=== PATIENT | male | born 1995 | race Caucasian/White ===

== ENCOUNTER 2024-11-01 14:19 | Emergency (ER) | payer OTHER ==
[~2024-11-01] VITALS: Ht 188 cm; Wt 113.6 kg
[2024-11-01 15:49] VITALS: BP 130/86; PULSE 71; RESP 18; TEMP 98.1; O2SAT 97
[2024-11-01 16:36] LABS: PLATELET COUNT (AUTO) 357 K/uL (150-450); RED BLOOD CELL COUNT(AUTO) 4.78 MIL/uL (4.50-5.90); RED CELL DISTRIBUTION WIDTH 13.0 % (11.5-14.5); WHITE BLOOD COUNT (AUTO) 8.4 K/uL (4.5-11.0)
[2024-11-01 16:46] LABS: CALCIUM, TOTAL 8.8 mg/dL (8.8-10.5); CREATININE 0.99 mg/dL (0.60-1.30); GLOMERULAR FILTR. RATE CALC > 60 mL/min (>60); GLUCOSE,RANDOM 94 mg/dL (70-110); SODIUM SERUM 141 mmol/L (136-145); UREA NITROGEN, BLOOD 10 mg/dL (7-18)
[2024-11-01] MEDS: IBUPROFEN 400 MG TABLET PO ONE (17:05)
[2024-11-01] MEDS: ACETAMINOPHEN 500 MG TABLET PO ONE (17:06)
== END 2024-11-01 20:32 | disposition left against medical advice (07) ==
LOC: EMS 14:19
DX: N50.811 Right testicular pain (principal); E78.00 Pure hypercholesterolemia, unspecified; J45.909 Unspecified asthma, uncomplicated; K21.9 Gastro-esophageal reflux disease without esophagitis; F32.A Depression, unspecified; Z53.29 Procedure and treatment not carried out because of patient's decision for other reasons
CPT/HCPCS: 76870; 80048; 85025; 99284